=== PATIENT | female | born 1960 | race Caucasian/White ===

== ENCOUNTER → 2016-10-20 | Outpatient (CLI) | payer OTHER ==
[~2016-10-20] MED LIST: ATEN50TA8 PO; DICL-201 PO; GLC/500 PO; GLIM1TAB2 PO; LEVO88TA3 PO; POTA8CAP6 PO; REDCAP2 PO; TRIA37.5 PO
[2016-10-20 13:32] LABS: ESTIMATED AVERAGE GLUCOSE 146 mg/dl; HA1C FLAG Normal (Normal)
[2016-10-20 13:38] LABS: ALT/SGPT 60 U/L (12-78); BLOOD UREA NITROGEN 18 mg/dl (7-18); BUN/CREATININE RATIO 20.6 (10-20); CARBON DIOXIDE 29 mmol/L (21-32); CHLORIDE 102 mmol/L (98-107); CHOLESTEROL 241 mg/dl (0-200); CREATININE 0.87 mg/dl (0.60-1.20); GLUCOSE 135 mg/dl (70-99); POTASSIUM 3.7 mmol/L (3.5-5.1); SODIUM 138 mmol/L (136-145); TRIGLYCERIDES 366 mg/dl (0-150); VERY LOW DENSITY LIPOPROT CALC 73 mg/dl
[2016-10-20 13:48] LABS: ALB/GLOB RATIO 1.3 (0.9-2); ALKALINE PHOSPHATASE 86 U/L (45-117); AST/SGOT 34 U/L (15-37); CHOLESTEROL/HDL RATIO 7.1; HDL CHOLESTEROL 34 mg/dl; LDL CHOLESTEROL CALCULATED 134 mg/dl; THYROID STIMULATING HORMONE 0.945 uIu/ml (0.300-4.500)
[2016-10-20 14:31] LABS: CALCIUM 9.6 mg/dl (8.5-10.1)
== END | disposition home or self-care (01) ==
LOC: C.LABMFLN 09:24
PROVIDERS: ATTEND Family Medicine
DX: I10 Essential (primary) hypertension (principal); E03.9 Hypothyroidism, unspecified; E78.00 Pure hypercholesterolemia, unspecified; E11.9 Type 2 diabetes mellitus without complications; M54.16 Radiculopathy, lumbar region

== ENCOUNTER → 2017-02-17 | Outpatient (CLI) | payer OTHER ==
[2017-02-17 13:56] LABS: ESTIMATED AVERAGE GLUCOSE 151 mg/dl; HA1C FLAG Normal (Normal)
[2017-02-17 14:05] LABS: ALT/SGPT 56 U/L (12-78); BLOOD UREA NITROGEN 17 mg/dl (7-18); BUN/CREATININE RATIO 18.7 (10-20); CALCIUM 9.2 mg/dl (8.5-10.1); CARBON DIOXIDE 29 mmol/L (21-32); CHLORIDE 103 mmol/L (98-107); CHOLESTEROL 155 mg/dl (0-200); GLUCOSE 129 mg/dl (70-99); POTASSIUM 3.6 mmol/L (3.5-5.1); SODIUM 138 mmol/L (136-145)
[2017-02-17 14:16] LABS: ALB/GLOB RATIO 1.3 (0.9-2); ALKALINE PHOSPHATASE 109 U/L (45-117); AST/SGOT 35 U/L (15-37); CHOLESTEROL/HDL RATIO 4.4; HDL CHOLESTEROL 35 mg/dl; LDL CHOLESTEROL CALCULATED 75 mg/dl; TRIGLYCERIDES 225 mg/dl (0-150); VERY LOW DENSITY LIPOPROT CALC 45 mg/dl
== END | disposition home or self-care (01) ==
LOC: C.LABMFLN 09:52
PROVIDERS: ATTEND Family Medicine
DX: I10 Essential (primary) hypertension (principal); E03.9 Hypothyroidism, unspecified; E11.9 Type 2 diabetes mellitus without complications; E78.00 Pure hypercholesterolemia, unspecified

== ENCOUNTER → 2017-04-28 | Outpatient (CLI) | payer OTHER ==
--- NOTE | 2017-04-28 14:49 | DIAGNOSTIC IMAGING REPORT ---
L HIP UNILATERAL 2 VIEWS, R HIP UNILATERAL 2 VIEWS HISTORY: 56 years-old Female RT HIP PAIN chronic bilateral hip pain without reported trauma COMPARISON: None available TECHNIQUE: 2 views of the bilateral hips for a total of 4 images FINDINGS: RIGHT: No acute fracture, dislocation or significant degenerative changes. Soft tissues are unremarkable. LEFT: No acute fracture, dislocation or significant degenerative changes. Focal area of sclerosis involving the proximal femoral diaphysis medullary cavity measures 1.7 x 1.4 cm with thin zone of transition. Phleboliths of the pelvis are noted. IMPRESSION: 1. No acute fracture or dislocation. 2. 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 The above report was generated using voice recognition software. It may contain grammatical, syntax or spelling errors. Electronically signed by: Lan Wan M.D. 04/28/2017 2:47 PM Dictated Date/Time: 04/28/2017 2:44 PM
== END | disposition home or self-care (01) ==
LOC: C.RADBC 13:44
PROVIDERS: ATTEND Physician Assistant Medical
DX: M25.551 Pain in right hip (principal); R93.7 Abnormal findings on diagnostic imaging of other parts of musculoskeletal system

== ENCOUNTER → 2017-07-14 | Outpatient (CLI) | payer OTHER ==
[~2017-07-14] MED LIST changes: +LOVA10TA3 PO
== END | disposition home or self-care (01) ==
LOC: C.LABMFLN 14:06
PROVIDERS: ATTEND Family Medicine
DX: E11.9 Type 2 diabetes mellitus without complications (principal)

== ENCOUNTER → 2017-07-28 | Outpatient (CLI) | payer OTHER | END | disposition home or self-care (01) | LOC: C.PAPS 09:22 | PROVIDERS: ATTEND Family Medicine | DX: Z00.00 Encounter for general adult medical examination without abnormal findings (principal) ==

== ENCOUNTER → 2018-01-23 | Outpatient (CLI) | payer OTHER ==
[~2018-01-23] MED LIST changes: -DICL-201 PO; -LOVA10TA3 PO; +OPTIRAY 320 IV PRN; -REDCAP2 PO
--- NOTE | 2018-01-23 12:44 | DIAGNOSTIC IMAGING REPORT ---
ABD/PELVIS IV AND ORAL CONT CT DOSE: 915.06 mGycm HISTORY: Pain M54.9 Back painR10.2 Pelvic [id number] TECHNIQUE: Multiaxial CT images of the abdomen and pelvis were performed following the use of intravenous and oral contrast. A dose lowering technique was utilized adhering to the principles of ALARA. COMPARISON STUDY: None. FINDINGS: Lung bases are clear. Mild fatty replacement of the liver. Possible small gallstone in the region of the gallbladder neck. Pancreas is uniform. Spleen is unremarkable. The adrenal glands are normal. Kidneys enhance uniformly. 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 The bowel pattern within the abdomen and pelvis is nonobstructive. The appendix is normal. Bladder is midline. No free fluid within the pelvic cul-de-sac. IMPRESSION: 1. Fatty infiltration of liver. 2. Small gallstone within the gallbladder neck. 3. Otherwise negative study. The above report was generated using voice recognition software. It may contain grammatical, syntax or spelling errors. Electronically signed by: Mike Dale M.D. 01/23/2018 12:43 PM Dictated Date/Time: 01/23/2018 12:39 PM
== END | disposition home or self-care (01) ==
LOC: C.CTS 11:55
PROVIDERS: ATTEND Family Medicine
DX: K80.20 Calculus of gallbladder without cholecystitis without obstruction (principal); K76.0 Fatty (change of) liver, not elsewhere classified

== ENCOUNTER → 2018-01-25 | Outpatient (CLI) | payer OTHER ==
[~2018-01-25] MED LIST changes: -OPTIRAY 320 IV PRN
[2018-01-25 17:56] LABS: ALBUMIN 3.5 gm/dl (3.4-5.0); BLOOD UREA NITROGEN 12 mg/dl (7-18); CALCIUM 8.5 mg/dl (8.5-10.1); CARBON DIOXIDE 27 mmol/L (21-32); CREATININE 0.97 mg/dl (0.60-1.20); GLUCOSE 317 mg/dl (70-99); PHOSPHORUS 2.2 mg/dl (2.5-4.9); POTASSIUM 3.4 mmol/L (3.5-5.1); SODIUM 138 mmol/L (136-145)
== END | disposition home or self-care (01) ==
LOC: C.LABMFLN 12:17
PROVIDERS: ATTEND Family Medicine
DX: E11.9 Type 2 diabetes mellitus without complications (principal)